=== PATIENT | female | born 1940 | race Hispanic/Latino ===

== ENCOUNTER 2016-10-12 09:11 | Outpatient (CLI) | payer MEDICARE, OTHER ==
--- NOTE | 2016-10-12 15:44 | Mammography Report ---
BILATERAL DIGITAL SCREENING MAMMOGRAM with CAD : 10/12/16 09:11:00 CLINICAL: Routine screening. COMPARISON:03/08/15 FINDINGS: The breasts are heterogeneously dense, which may obscure small masses. No mass, architectural distortion or suspicious calcifications. IMPRESSION: No mammographic evidence of malignancy. BI-RADS CATEGORY: 2 -- Benign RECOMMENDATION: Routine mammographic screening in one year. COMMENT: Patient follow-up letters are generated by our [employer] application.
== END 2016-10-12 09:12 | disposition home or self-care (01) ==
LOC: SPVWC 09:11
PROVIDERS: ATTEND Obstetrics & Gynecology Gynecology
DX: Z12.31 Encounter for screening mammogram for malignant neoplasm of breast (principal)
CPT/HCPCS: 77067; G0202

== ENCOUNTER 2017-07-24 10:07 | Outpatient (CLI) | payer MEDICARE, OTHER ==
--- NOTE | 2017-07-25 13:57 | Magnetic Resonance Report ---
MRI RIGHT KNEE WITHOUT CONTRAST: 07/24/17 CLINICAL: Right knee pain. TECHNIQUE: Sagittal proton density fat sat, sagittal T2, coronal T1, coronal T2 fat sat and axial gradient T2*sequences on a 1.5 Karina magnet. FINDINGS: The menisci are intact. Intact anterior and posterior cruciate ligaments. The collateral ligaments are intact. Irregularity and full thickness thinning of both medial and lateral femoral cartilage. Subchondral cysts of the anterior aspect of the lateral femoral condyle. A large knee joint effusion. Patellofemoral joint osteoarthritis with large osteophytes. A 5 mm loose body at the lateral aspect of the patellofemoral joint. No other loose bodies are identified. Irregularity and full thickness thinning of the patellofemoral cartilage. Subchondral cyst at the superior aspect of the patella. Prepatellar soft tissue edema. The patellar retinaculum and tendon are intact. No popliteal cyst. IMPRESSION: 1. Osteoarthritis with thinning and irregularity of both lateral and medial femoral cartilage. 2. Chondromalacia patellae, patellofemoral joint osteoarthritis and a 5 mm loose body in the lateral aspect of the patellofemoral joint. 3. No meniscal or ligamentous injury. 4. Large knee joint effusion. 5. No bone contusion or fracture.
== END 2017-07-24 10:08 | disposition home or self-care (01) ==
LOC: SPVWC 10:07
PROVIDERS: ATTEND Orthopaedic Surgery Sports Medicine
DX: M17.11 Unilateral primary osteoarthritis, right knee (principal); M22.41 Chondromalacia patellae, right knee; M25.861 Other specified joint disorders, right knee; I10 Essential (primary) hypertension; E78.00 Pure hypercholesterolemia, unspecified
CPT/HCPCS: 73721

== ENCOUNTER 2018-05-01 10:49 | Outpatient (CLI) | payer MEDICARE, OTHER ==
--- NOTE | 2018-05-01 16:10 | Mammography Report ---
BILATERAL DIGITAL SCREENING MAMMOGRAM with CAD : 05/01/18 10:49:00 CLINICAL: Routine screening. COMPARISON:10/12/16 and 03/08/15 FINDINGS: The breasts are heterogeneously dense, which may obscure small masses. No mass, architectural distortion or suspicious calcifications. IMPRESSION: No mammographic evidence of malignancy. BI-RADS CATEGORY: 2 -- Benign RECOMMENDATION: Routine mammographic screening in one year. COMMENT: Patient follow-up letters are generated by our [employer] application.
== END 2018-05-01 10:50 | disposition home or self-care (01) ==
LOC: SPVWC 10:49
PROVIDERS: ATTEND Internal Medicine
DX: Z12.31 Encounter for screening mammogram for malignant neoplasm of breast (principal); I10 Essential (primary) hypertension; K21.9 Gastro-esophageal reflux disease without esophagitis; E66.9 Obesity, unspecified; E78.00 Pure hypercholesterolemia, unspecified; Z90.710 Acquired absence of both cervix and uterus; Z90.49 Acquired absence of other specified parts of digestive tract
CPT/HCPCS: 77067

== ENCOUNTER 2019-08-05 11:05 | Outpatient (CLI) | payer MEDICARE, OTHER ==
--- NOTE | 2019-08-05 16:01 | Mammography Report ---
DIGITAL SCREENING MAMMOGRAM WITH CAD, 08/05/2019 INDICATION: Routine screening mammography. TECHNIQUE: Digital bilateral 2D mammography was obtained in the craniocaudal and mediolateral obliq ue projections. This examination was interpreted with the benefit of Computer-Aided Detection analysi s. COMPARISON: 05/01/2018 FINDINGS: Breast Density: The breasts are heterogeneously dense, which may obscure small masses. There is no evidence of dominant mass, suspicious calcifications or architectural distortion in eithe r breast. Scattered bilateral benign calcifications. IMPRESSION: No mammographic evidence of malignancy. Follow up recommendation: Routine yearly BI-RADS Category 2: Benign. A "normal" or negative report should not discourage follow up or biopsy of a clinically significant f inding. A written summary of these findings will be mailed to the patient. The patient will be entered into a mammography reporting system which will generate a reminder letter for the patient's next appointmen t at the appropriate interval. The [employer] recommends yearly mammograms starting at age 40 and continuing as l hossein as a woman is in good health. Breast MRI is recommended for women with an approximate 20-25% or greater lifetime risk of breast cancer, including women with a strong family history of breast or ova goran cancer or who have been treated for Hodgkin's disease. Signer Name: Davidson Galeas MD Signed: 08/05/2019 3:56 PM Workstation Name: [id number]
== END 2019-08-05 11:06 | disposition home or self-care (01) ==
LOC: SPVWC 11:05
PROVIDERS: ATTEND Internal Medicine
DX: Z12.31 Encounter for screening mammogram for malignant neoplasm of breast (principal)
CPT/HCPCS: 77067

== ENCOUNTER 2020-10-26 09:47 | Outpatient (CLI) | payer MEDICARE, OTHER ==
--- NOTE | 2020-10-26 13:45 | Mammography Report ---
DIGITAL SCREENING MAMMOGRAM WITH CAD, 10/26/2020 CLINICAL INFORMATION / INDICATION: Routine screening mammography. SCREENING MAMMO TECHNIQUE: Digital bilateral 2D mammography was obtained in the craniocaudal and mediolateral obliqu e projections. This examination was interpreted with the benefit of Computer-Aided Detection analysis . COMPARISON: 10/12/2016 through 08/05/2019. FINDINGS: Breast Density: The breasts are heterogeneously dense, which may obscure small masses. The study is technically difficult due to the patient's inability to cooperate with positioning. No d ominant mass, suspicious calcifications, or architectural distortion in either breast. There are benign scattered calcifications bilaterally. No new abnormality is seen. IMPRESSION: No mammographic evidence of malignancy. Follow up recommendation: Routine yearly BI-RADS Category 2: Benign. A "normal" or negative report should not discourage follow up or biopsy of a clinically significant f inding. A written summary of these findings will be mailed to the patient. The patient will be entered into a mammography reporting system which will generate a reminder letter for the patient's next appointmen t at the appropriate interval. The [employer] recommends yearly mammograms starting at age 40 and continuing as l hossein as a woman is in good health. Breast MRI is recommended for women with an approximate 20-25% or greater lifetime risk of breast cancer, including women with a strong family history of breast or ova goran cancer or who have been treated for Hodgkin's disease. Signer Name: Dalton Hameed MD Signed: 10/26/2020 1:40 PM Workstation Name: [id number]
== END 2020-10-26 09:48 | disposition home or self-care (01) ==
LOC: SPVWC 09:47
PROVIDERS: ATTEND Internal Medicine
DX: Z12.31 Encounter for screening mammogram for malignant neoplasm of breast (principal); N64.89 Other specified disorders of breast
CPT/HCPCS: 77067